=== PATIENT | female | born 1970 | race Hispanic/Latino ===

== ENCOUNTER 2017-01-10 04:32 | Emergency (ER) | payer SELFPAY ==
[2017-01-10 04:55] VITALS: BP 142/97
--- NOTE | 2017-01-10 07:16 | XRay Report ---
ROUTINE CHEST, TWO VIEWS: HISTORY: Cough. The trachea, heart, mediastinal contour, lung gandhi and bony thorax are unremarkable. IMPRESSION: Unremarkable chest x-ray.
== END 2017-01-10 08:25 | disposition left against medical advice (07) ==
LOC: ED 04:32
DX: Z53.21 Procedure and treatment not carried out due to patient leaving prior to being seen by health care provider (principal)
CPT/HCPCS: 71020

== ENCOUNTER 2021-11-21 00:34 | Emergency (ER) | payer SELFPAY ==
[2021-11-21 00:38] VITALS: BP 154/96
--- NOTE | 2021-11-21 02:01 | Emergency Department Report ---
Blank Doc - Documentation Documentation: [id number]
== END 2021-11-21 02:05 | disposition left against medical advice (07) ==
LOC: ED 00:34
DX: K08.89 Other specified disorders of teeth and supporting structures (principal); Z53.21 Procedure and treatment not carried out due to patient leaving prior to being seen by health care provider